=== PATIENT | male | born 1980 | race American Indian/Alaskan Native ===

== ENCOUNTER 2018-02-11 13:41 | Emergency (ER) | payer MEDICARE ==
[2018-02-11] MEDS ORDERED: KEPPRA 1,000 MG/NS 0.75% 100ML 1,000 MG/100 ML BAG IV ONE (14:49)
[2018-02-11] MEDS ORDERED: FIORICET PO ONE (14:57)
--- NOTE | 2018-02-11 15:02 | Emergency Department Report ---
HPI - General Chief Complaint: Seizure Time Seen by Provider: 02/11/18 14:48 - HPI HPI: Room 22 The patient is 37-year-old male presenting with a chief complaint of seizure. The patient reports a seizure today. EMS was called and when the patient was walking down the steps he states he began to feel dizzy and had a syncopal episode. Patient was caught by friends/family before hitting the ground. Patient now complains of feeling fatigue and states his headache and his score of 9/10. The patient states his last seizure before today was yesterday and he has frequent seizures intermittently in spurts. The patient states she has an appointment to see his neurologist 03/07/2018 Location: [See above] Duration: [See above] Quality: Generalized tonic-clonic, headache Severity: 9/10 Modifying factors: [see above] Context: [see above] Mode of transportation: [not driving] ED Past Medical Hx - Past Medical History Previous Medical History?: Yes Hx Diabetes: Yes Hx Seizures: Yes Hx Psychiatric Treatment: Yes (bipolar) Additional medical history: R. eye cataract, L. eye glaucoma, vision impaired - Surgical History Past Surgical History?: No - Family History Family history: no significant - Social History Smoking Status: Never Smoker Substance Use Type: None - Medications Home Medications: Home Medications Medication Instructions Recorded Confirmed Last Taken Type Citalopram [celeXA] 20 mg PO QDAY #30 tablet 03/20/16 05/18/[address] [DepaKOTE DR] 500 mg PO BID #60 tablet 03/20/16 05/18/16 Unknown Rx PHENobarbital 60 mg PO HS #30 tablet 03/20/16 05/18/16 Unknown Rx levETIRAcetam [Keppra TAB] 750 mg PO BID #60 tablet 03/20/16 05/18/16 Unknown Rx ED Review of Systems ROS: Stated complaint: SEIZURES Other details as noted in HPI Constitutional: malaise Neurological: headache, other (seizure, syncope) Physical Exam - Physical Exam Vital Signs: Vital Signs 02/11/18 14:37 Temperature 98.5 F Pulse Rate 61 Respiratory 16 Rate Blood Pressure 101/65 O2 Sat by Pulse 99 Oximetry Physical Exam: GENERAL: The patient is well-developed well-nourished male lying on stretcher not appearing to be in acute distress. [] HEENT: Normocephalic. Atraumatic. Extraocular motions are intact. Patient has moist mucous membranes. NECK: Supple. No meningitic signs are noted. Trachea midline CHEST/LUNGS: Clear to auscultation. There is no respiratory distress noted. HEART/CARDIOVASCULAR: Regular. There is no tachycardia. There is no gallop rub or murmur. ABDOMEN: Abdomen is soft, nontender. Patient has normal bowel sounds. There is no abdominal distention. SKIN: There is no rash. There is no edema. There is no diaphoresis. NEURO: The patient is awake, alert, and oriented. The patient is cooperative. The patient has no focal neurologic deficits. The patient has normal speech. Cranial nerves II through XII grossly intact, no drift MUSCULOSKELETAL: There is no evidence of acute injury. ED Course Vital Signs 02/11/18 14:37 Temperature 98.5 F Pulse Rate 61 Respiratory 16 Rate Blood Pressure 101/65 O2 Sat by Pulse 99 Oximetry ED Medical Decision Making - Lab Data Result diagrams: 02/11/18 14:58 02/11/18 14:58 Laboratory Tests 02/11/18 02/11/18 02/11/18 14:58 14:58 14:58 WBC 4.2 L RBC 4.04 Hgb 12.9 Hct 38.5 MCV 95 H MCH 32 MCHC 33 RDW 14.3 Plt Count 171 Lymph % (Auto) 41.9 H [place] % (Auto) 11.6 H Eos % (Auto) 3.0 Baso % (Auto) 0.7 Lymph # 1.8 [place] # 0.5 Eos # 0.1 Baso # 0.0 Seg Neutrophils % 42.8 Seg Neutrophils # 1.8 Sodium 139 Potassium 3.9 Chloride 104.2 Carbon Dioxide 23 Anion Gap 16 BUN 14 Creatinine 0.5 L Estimated GFR > 60 BUN/Creatinine Ratio 28 Glucose 75 Calcium 8.9 Magnesium 2.20 Total Creatine Kinase CK-MB (CK-2) CK-MB (CK-2) Rel Index Troponin T Valproic Acid Phenobarbital 44.1 H 02/11/18 02/11/18 14:58 15:11 WBC RBC Hgb Hct MCV MCH MCHC RDW Plt Count Lymph % (Auto) [place] % (Auto) Eos % (Auto) Baso % (Auto) Lymph # [place] # Eos # Baso # Seg Neutrophils % Seg Neutrophils # Sodium Potassium Chloride Carbon Dioxide Anion Gap BUN Creatinine Estimated GFR BUN/Creatinine Ratio Glucose Calcium Magnesium Total Creatine Kinase 82 CK-MB (CK-2) 1.0 CK-MB (CK-2) Rel Index Troponin T < 0.010 Valproic Acid 38.5 L Phenobarbital - Radiology Data Radiology results: report reviewed (CT head), image reviewed (CT head) CT head (read by radiologist) sees-nonspecific mild to moderate volume loss in the posterior fossa. No evidence of acute stroke or hemorrhage - Differential Diagnosis seizure, ICH, electrolyte imbalance, ACS Critical care attestation.: If time is entered above; I have spent that time in minutes in the direct care of this critically ill patient, excluding procedure time. ED Disposition Clinical Impression: Seizure, Seizure secondary to subtherapeutic anticonvulsant medication Disposition: DC-01 TO HOME OR SELFCARE Is pt being admited?: No Does the pt Need Aspirin: No Condition: Stable Instructions: Epilepsy (ED) Additional Instructions: Return to the emergency department immediately should you develop worsening symptoms, fever, inability to tolerate food or liquid or any other concerns. Referrals: your, neurologist [Other] - SIMI Time of Disposition: 16:29
[2018-02-11 15:21] LABS: Basophils % (Auto) 0.7 % (0.0-1.8); Eosinophils # (Auto) 0.1 K/mm3 (0.0-0.4); Hematocrit 38.5 % (35.5-45.6); Hemoglobin 12.9 gm/dl (11.8-15.2); Lymphocytes # (Auto) 1.8 K/mm3 (1.2-5.4); Lymphocytes % (Auto) 41.9 % (13.4-35.0); Mean Corpuscular HGB Conc 33 % (32-34); Mean Corpuscular Hemoglobin 32 pg (28-32); Mean Corpuscular Volume 95 fl (84-94); Monocytes # (Auto) 0.5 K/mm3 (0.0-0.8); Monocytes % (Auto) 11.6 % (0.0-7.3); Platelet Count 171 K/mm3 (140-440); Red Blood Count 4.04 M/mm3 (3.65-5.03); Red Cell Distribution Width 14.3 % (13.2-15.2)
[2018-02-11 15:37] LABS: BUN/Creatinine Ratio 28; Blood Urea Nitrogen 14 mg/dL (9-20); Calcium 8.9 mg/dL (8.4-10.2); Hemolysis Index 11
--- NOTE | 2018-02-11 15:58 | Cat Scan Report ---
FINAL REPORT EXAM: CT HEAD/BRAIN WO CON HISTORY: seizure, syncope TECHNIQUE: Routine imaging was obtained of the brain without IV contrast. There are no previous studies available for comparison. FINDINGS: There is no evidence of acute stroke or hemorrhage. There trmd-id-frszyppm volume loss in the posterior fossa which is of uncertain etiology. The ventricular system is appropriate in size. Basal cisterns appear normal. The visualized sinuses are clear. The mastoid air cells are well pneumatized. The calvarium appears intact IMPRESSION: Nonspecific lyrn-gg-lcsgbsta volume loss in the posterior fossa. No evidence of acute stroke or hemorrhage.
[2018-02-11] MEDS ORDERED: DepaCON 500 MG in NACL 0.9% 100 ML IV ONE (16:30)
[2018-02-11] MEDS ORDERED: BENADRYL IM PRN (18:21)
[2018-02-11] MEDS: KEPPRA PO SCH (21:53)
[2018-02-11] MEDS ORDERED: NON-FORMULARY (Levetiracetam [Keppra Tab] 750 MG) PO SCH (22:00)
[2018-02-12] MEDS: celeXA PO SCH (09:49)
[2018-02-12] MEDS: KEPPRA PO SCH ×2 (09:50→22:45)
--- NOTE | 2018-02-12 10:29 | Consultation ---
History of Present Illness - Reason for Consult Consult date: 02/12/18 Reason for consult: Mental Health Evaluation Requesting physician: ABEBE LO - Chief Complaint Chief complaint: "The patient refused to talk" - History of Present Psychiatric Illness 37-year-old male presenting with a chief complaint of seizure. Per the ER note, the patient endorsed SIs' prior to being discharged. Today the patient refused to answer questions during the assessment. He kept his head under the bed sheets the entire time. Medications and Allergies Allergies Allergy/AdvReac Type Severity Reaction Status Date / Time phenytoin sodium Allergy Dizziness Verified 06/28/15 14:00 [From Dilantin] phenytoin sodium extended Allergy Dizziness Verified 06/28/15 14:00 [From Dilantin] Home Medications Medication Instructions Recorded Confirmed Last Taken Type Citalopram [celeXA] 20 mg PO QDAY #30 tablet 03/20/16 05/18/[address] [DepaKOTE DR] 500 mg PO BID #60 tablet 03/20/16 05/18/16 Unknown Rx PHENobarbital 60 mg PO HS #30 tablet 03/20/16 05/18/16 Unknown Rx levETIRAcetam [Keppra TAB] 750 mg PO BID #60 tablet 03/20/16 05/18/16 Unknown Rx Active Meds: Active Medications Citalopram Hydrobromide (Celexa) 20 mg PO QDAY [facility] Last Admin: 02/12/18 09:49 Dose: 20 mg Clonazepam (Klonopin) 0.5 mg PO BID PRN PRN Reason: Anxiety Diphenhydramine HCl (Benadryl) 50 mg IM Q6H PRN PRN Reason: Agitation Divalproex Sodium (Depakote Dr) 500 mg PO BID [facility] Last Admin: 02/12/18 09:49 Dose: 500 mg Levetiracetam (Keppra) 750 mg PO BID [facility] Last Admin: 02/12/18 09:50 Dose: 750 mg Phenobarbital (Phenobarbital) 64.8 mg PO QHS [facility] Last Admin: 02/11/18 21:57 Dose: 64.8 mg Past psychiatric history - Past Medical History Past Medical History: other (Unable to obtain) Past Surgical History: Other (Unabel to obtain) - past Psychiatric treatment and history psychiatric treatment history: Unable to obtain a psy and fam psy hx. - Social History Social history: other (Unable to obtain) Mental Status Exam - Vital signs Last Vital Signs Temp 97.6 F 02/12/18 07:52 Pulse 68 02/12/18 07:52 Resp 18 02/12/18 07:52 BP 99/74 02/12/18 07:52 Pulse Ox 100 02/11/18 20:55 - Exam Narrative exam: Unable to complete the MSE because patient refused to cooperate. Results Result Diagrams: 02/11/18 14:58 02/11/18 14:58 Abnormal lab results 02/11/18 02/11/18 02/11/18 Range/Units 14:58 14:58 14:58 WBC 4.2 L (4.5-11.0) K/mm3 MCV 95 H (84-94) fl Lymph % (Auto) 41.9 H (13.4-35.0) % [place] % (Auto) 11.6 H (0.0-7.3) % Creatinine 0.5 L (0.8-1.5) mg/dL Salicylates (2.8-20.0) mg/dL Acetaminophen (10.0-30.0) ug/mL Valproic Acid (50-100) ug/mL Phenobarbital 44.1 H (15.0-40.0) ug/mL 02/11/18 02/11/18 02/11/18 Range/Units 14:58 14:58 14:58 WBC (4.5-11.0) K/mm3 MCV (84-94) fl Lymph % (Auto) (13.4-35.0) % [place] % (Auto) (0.0-7.3) % Creatinine (0.8-1.5) mg/dL Salicylates < 0.3 L (2.8-20.0) mg/dL Acetaminophen < 5.0 L (10.0-30.0) ug/mL Valproic Acid 38.5 L (50-100) ug/mL Phenobarbital (15.0-40.0) ug/mL All other labs normal. Assessment and Plan Assessment and plan: Impression: Today the patient refused to answer questions during the assessment. Recommendation/Plan: Continue 1013 and attempt to assess the patient in 24 hours.
[2018-02-13 07:39] VITALS: BP 80/50
[2018-02-13] MEDS: celeXA PO SCH (11:45)
[2018-02-13] MEDS: KEPPRA PO SCH (11:45)
--- NOTE | 2018-02-13 12:51 | Progress Note ---
Subjective - Reason for Consult Consult date: 02/13/18 Reason for consult: Psychiatry Follow-up - Chief Complaint Chief complaint: "I was wrong'' 37-year-old male presenting with a chief complaint of seizure. Per the ER note, the patient endorsed SI's prior to being discharged. Today the patient stated that he was upset that his cousin Syd would not pick him up yesterday once discharged. He stated that he felt Syd should have picked him up. The patient apologized for his actions prior to his discharge 2 days ago. Per collateral information from Syd at [phone], he stated that he does not believe the patient would kill himself. He stated that he was busy yesterday. The patient denies SI/HI's and AVH's. He stated that he see Dr Irizarry at [facility] for outpatient psy services for Bipolar DO. He denies any recent manic episodes. He stated having an appt [address] Irizarry. Mental Status Exam - Vital signs Last Vital Signs Temp 97.8 F 02/13/18 07:39 Pulse 74 02/13/18 07:39 Resp 18 02/13/18 07:39 BP 80/50 02/13/18 07:39 Pulse Ox 97 02/13/18 07:39 - Exam Narrative exam: MSE: Appearance: calm, cooperative Behavior: regular eye contact Speech: regular rate and tone Mood: "fine" Affect: congruent to mood Thought Process: linear Thought Content: denies SI/HI's and AVH's Motor Activity: ambulatory Cognition: A/O x 3 Insight: appropriate Judgment: appropriate Assessment and Plan Impression: Hx of Bipolar DO. Today the patient is clam and cooperative during the assessment. Recommendation/Plan: Rescind 1013. The patient can follow-up with Dr Irizarry at [facility] for outpatient psy services.
[2018-02-13] MEDS ORDERED: PHENOBARBITAL 60 MG PO SCH (22:00)
== END 2018-02-13 14:38 | disposition home or self-care (01) ==
LOC: ED 13:41
DX: R56.9 Unspecified convulsions (principal); E11.9 Type 2 diabetes mellitus without complications
CPT/HCPCS: 36415; 70450; 80048; 80164; 80184; 82550; 82553; 83735; 84484; 85025; 93005; 93010; 96365; 96367; 99285; G0480; J1953; 80320

== ENCOUNTER 2018-04-07 14:55 | Emergency (ER) | payer MEDICARE ==
[2018-04-07 15:57] VITALS: BP 98/62
--- NOTE | 2018-04-07 17:47 | Emergency Department Report ---
Chief Complaint: Psych Stated Complaint: MENTAL HEALTH EVALUATION Time Seen by Provider: 04/07/18 17:42 - HPI History of Present Illness: ms. Anna desires assistance for placement. He is not happy with his current place of residence. Denies SI/HI - Exam Vital Signs: Vital Signs 04/07/18 15:47 Temperature 98.6 F Pulse Rate 78 Respiratory 18 Rate Blood Pressure 98/62 O2 Sat by Pulse 100 Oximetry MSE screening note: I have performed a medical screening exam. I have urged Mr. Anna to speak with his personal pillowcase sewer. He does not have any acute medical or psychiatric needs. ED Disposition for MSE Clinical Impression: High risk social situation Disposition: DC-01 TO HOME OR SELFCARE Is pt being admited?: No Does the pt Need Aspirin: No Condition: Stable Additional Instructions: Please talk to your pillowcase sewer for assistance. Time of Disposition: 17:47
== END 2018-04-07 18:36 | disposition home or self-care (01) ==
LOC: ED 14:55
DX: Z60.8 Other problems related to social environment (principal)
CPT/HCPCS: 99283

== ENCOUNTER 2018-06-27 19:42 | Emergency (ER) | payer MEDICAID, MEDICARE ==
[2018-06-27 21:28] LABS: Hematocrit 34.4 % (35.5-45.6); Hemoglobin 11.9 gm/dl (11.8-15.2); Mean Corpuscular HGB Conc 35 % (32-34); Mean Corpuscular Hemoglobin 32 pg (28-32); Mean Corpuscular Volume 94 fl (84-94); Platelet Count 203 K/mm3 (140-440); Red Blood Count 3.67 M/mm3 (3.65-5.03); Red Cell Distribution Width 13.4 % (13.2-15.2)
[2018-06-27 21:48] LABS: BUN/Creatinine Ratio 16; Blood Urea Nitrogen 11 mg/dL (9-20); Calcium 9.4 mg/dL (8.4-10.2); Hemolysis Index 13
[2018-06-27 21:50] LABS: Bacteria,Urine 1+ /HPF (Negative); Bilirubin,Urine NEG (Negative); Blood,Urine NEG (Negative); Color,Urine Yellow (Yellow); Mucus,Urine 3+ /HPF; Urobilinogen,Urine < 2.0 mg/dL (<2.0)
[2018-06-27 21:56] LABS: Amphetamine Screen,Urine PRESUMPTIVE NEGATIVE; Benzodiazepines Screen,Urine PRESUMPTIVE NEGATIVE; Cannabinoid Screen,Urine PRESUMPTIVE NEGATIVE; Cocaine Screen,Urine PRESUMPTIVE NEGATIVE; Methadone Screen,Urine PRESUMPTIVE NEGATIVE; Opiate Screen,Urine PRESUMPTIVE NEGATIVE
[2018-06-27 22:00] LABS: Basophils # (Auto) 0.1 K/mm3 (0.0-0.1); Eosinophils # (Auto) 0.1 K/mm3 (0.0-0.4); Eosinophils % (Auto) 2.1 % (0.0-4.3); Lymphocytes # (Auto) 2.2 K/mm3 (1.2-5.4); Lymphocytes % (Auto) 34.3 % (13.4-35.0); Monocytes # (Auto) 0.5 K/mm3 (0.0-0.8); Monocytes % (Auto) 8.4 % (0.0-7.3)
[2018-06-28] MEDS ORDERED: MACROBID PO ONE (01:49)
--- NOTE | 2018-06-28 06:07 | Emergency Department Report ---
Chief Complaint: Psych Stated Complaint: MH Time Seen by Provider: 06/28/18 00:44 - HPI History of Present Illness: 38-year-old -[place] presents for what appears to be a mental health evaluation. Patient admits to feeling "sad" and depressed. Not very forthcoming with information. There appears to be some type of a issue with his living situation. Denies suicidal or homicidal ideations or any hallucinations to me. - ROS Review of Systems: Denies suicidal or homicidal ideations, hallucinations. - Exam Vital Signs: Vital Signs 06/27/18 06/28/18 06/28/18 21:12 01:33 01:34 Temperature 98.7 F Pulse Rate 100 H 61 Respiratory 18 14 14 Rate Blood Pressure 98/48 Blood Pressure 109/71 [Left] O2 Sat by Pulse 100 100 100 Oximetry Physical Exam: Patient is sleeping, keeping his head within the T-shirt. Heart and lung sounds are normal in auscultation. Patient is not very forthcoming with information or conversive/interactive. MSE screening note: Focused history and physical exam performed. Due to findings the following was ordered: Patient appears to have a mild urinary tract infection. Macrobid has been ordered. The patient will be seen by the morning emergency medicine physician for further evaluation and disposition. ED Medical Decision Making - Lab Data Result diagrams: 06/27/18 21:17 06/27/18 21:17 ED Disposition for MSE Condition: Stable Referrals: PRIMARY CARE, [Primary Care Provider] - 3-5 Days
--- NOTE | 2018-06-28 06:38 | Emergency Department Report ---
ED Psych HPI - General Chief Complaint: Psych Stated Complaint: MH Time Seen by Provider: 06/28/18 00:44 Source: patient Mode of arrival: Ambulatory Limitations: No Limitations - History of Present Illness MD Complaint: suicidal ideation, feels depressed -: Gradual Associated Psychiatric Symptoms: depression History of same: Yes Quality: constant Improves With: none Worsens With: none Context: not taking psychiatric Treatments Prior to Arrival: none If Self Harm: admits thoughts of - Related Data Previous Rx's Medication Instructions Recorded Last Taken Type Citalopram [celeXA] 20 mg PO QDAY #30 tablet 03/20/16 Unknown Rx Divalproex [Bee KANG] 500 mg PO BID #60 tablet 03/20/16 Unknown Rx PHENobarbital 60 mg PO HS #30 tablet 03/20/16 Unknown Rx levETIRAcetam [Keppra TAB] 750 mg PO BID #60 tablet 03/20/16 Unknown Rx Allergies Allergy/AdvReac Type Severity Reaction Status Date / Time phenytoin sodium Allergy Dizziness Verified 06/28/15 14:00 [From Dilantin] phenytoin sodium extended Allergy Dizziness Verified 06/28/15 14:00 [From Dilantin] ED Review of Systems ROS: Stated complaint: MH Other details as noted in HPI Comment: All other systems reviewed and negative Constitutional: denies: chills, fever Eyes: denies: eye pain ENT: denies: ear pain Respiratory: denies: cough, shortness of breath Cardiovascular: denies: chest pain, palpitations Endocrine: no symptoms reported Gastrointestinal: denies: abdominal pain, nausea, vomiting, diarrhea Genitourinary: denies: urgency, dysuria Musculoskeletal: denies: back pain, joint swelling Skin: denies: rash, lesions Neurological: denies: headache, weakness, numbness Psychiatric: denies: anxiety, depression Hematological/Lymphatic: denies: easy bleeding, easy bruising ED Past Medical Hx - Past Medical History Hx Diabetes: (hypoglycemia) Hx Seizures: Yes Hx Psychiatric Treatment: Yes (bipolar) Additional medical history: R. eye cataract, L. eye glaucoma, vision impaired - Social History Smoking Status: Never Smoker Substance Use Type: None - Medications Home Medications: Home Medications Medication Instructions Recorded Confirmed Last Taken Type Citalopram [celeXA] 20 mg PO QDAY #30 tablet 16 05/18/[address] [DepaKOTE DR] 500 mg PO BID #60 tablet 03/20/16 05/18/16 Unknown Rx PHENobarbital 60 mg PO HS #30 tablet 03/20/16 05/18/16 Unknown Rx levETIRAcetam [Keppra TAB] 750 mg PO BID #60 tablet 03/20/16 05/18/16 Unknown Rx ED Physical Exam - General Limitations: No Limitations General appearance: alert, in no apparent distress - Head Head exam: Present: atraumatic, normocephalic, normal inspection - Eye Eye exam: Present: normal appearance, PERRL, EOMI Pupils: Present: normal accommodation - ENT ENT exam: Present: normal exam, normal orophraynx, mucous membranes moist - Neck Neck exam: Present: normal inspection, full ROM. Absent: tenderness - Respiratory Respiratory exam: Present: normal lung sounds bilaterally. Absent: respiratory distress, wheezes, rales, rhonchi, stridor - Cardiovascular Cardiovascular Exam: Present: regular rate, normal rhythm, normal heart sounds - GI/Abdominal GI/Abdominal exam: Present: soft, distended, tenderness, guarding, rebound, normal bowel sounds - Extremities Exam Extremities exam: Present: normal inspection, full ROM, normal capillary refill. Absent: tenderness - Back Exam Back exam: Present: normal inspection, full ROM. Absent: tenderness - Neurological Exam Neurological exam: Present: alert, oriented X3, CN II-XII intact - Psychiatric Psychiatric exam: Present: normal affect, normal mood - Skin Skin exam: Present: warm, dry, intact, normal color. Absent: rash ED Course Vital Signs 06/27/18 06/28/18 06/28/18 21:12 01:33 01:34 Temperature 98.7 F Pulse Rate 100 H 61 Respiratory 18 14 14 Rate Blood Pressure 98/48 Blood Pressure 109/71 [Left] O2 Sat by Pulse 100 100 100 Oximetry 06/28/18 06/28/18 07:30 08:40 Temperature 97.8 F Pulse Rate 77 Respiratory 18 16 Rate Blood Pressure Blood Pressure 97/70 [Left] O2 Sat by Pulse 97 Oximetry - Reevaluation(s) Reevaluation #1: 06/28/18 12:35 Patient is medically cleared for psychiatric evaluation. ED Medical Decision Making - Lab Data Result diagrams: 06/27/18 21:17 06/27/18 21:17 - Medical Decision Making Suicide Ideation. Bipolar Disorder. Critical care attestation.: If time is entered above; I have spent that time in minutes in the direct care of this critically ill patient, excluding procedure time. ED Disposition Clinical Impression: Suicide ideation, Bipolar 1 disorder, depressed Disposition: DC/TX-65 PSY HOSP/PSY UNIT Is pt being admited?: No Does the pt Need Aspirin: No Condition: Stable Referrals: PRIMARY CARE, [Primary Care Provider] - 3-5 Days Time of Disposition: 12:00
[2018-06-28] MEDS ORDERED: KEFLEX PO ONE (07:13)
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
[2018-06-29 08:46] LABS: Alanine Aminotransferase 9 units/L (7-56); Lipase 27 units/L (13-60)
[2018-06-29] MEDS ORDERED: celeXA PO SCH (10:00)
--- NOTE | 2018-06-29 14:33 | Progress Note ---
Subjective - Reason for Consult Consult date: 06/29/18 Reason for consult: Psychiatry Follow-up - Chief Complaint Chief complaint: "I am okay" 38 year old male who presents to the emergency room for a mental health evaluation. This patient is known to me. Today the patient is calm and cooperative during the assessment. The patient stated that he was stressed and didn't have a place to go after finding out his transitional home was "foreclosed." He stated that he was depressed and came to the ER. He stated that he wanted to talk with a "professional." He stated that he never stated being suicidal during triage, so he was surprised that he was placed on a 1013. He stated that he is compliant with his medications and seen at [facility] for outpatient psy services. He denies SI/HI's and AVH's. He denies any side effects of his medications. Mental Status Exam - Vital signs Last Vital Signs Temp 97.8 F 06/28/18 07:30 Pulse 77 06/28/18 07:30 Resp 18 06/28/18 23:30 BP 97/70 06/28/18 07:30 Pulse Ox 99 06/28/18 23:30 - Exam Narrative exam: MSE: Appearance: calm, cooperative Behavior: regular eye contact Speech: regular rate and tone Mood: "okay" Affect: congruent to mood Thought Process: linear Thought Content: denies SI/HI's and AVH's Motor Activity: lying in bed Cognition: A/O x 3 Insight: appropriate Judgment: appropriate Assessment and Plan Impression: Hx Bipolar Disorder. The patient is no threat to self. Recommendation/Plan: Rescind 1013. Continue Depakote 500mg PO BID for mood and Celexa 20 mg PO QAM for depression/anxiety. Discussed suicidality/medication induced mamadou with patient reference Celexa. The patient can follow up with [facility] for outpatient psy services.
--- NOTE | 2018-06-29 16:01 | Emergency Department Report ---
HPI - General Chief Complaint: Psych Time Seen by Provider: 06/28/18 00:44 - HPI HPI: Patient was seen today by the psychiatric nurse practitioner Mr Gunner Casey who recommended discharge him home because patient is no longer suicidal. I re- examined the patient and he confirmed that he is no longer suicidal. Based on the recommendation of the psychiatric team, I'll go ahead and discharge patient to follow up in the psychiatric facility he has been referred to. Patient said he has all his medications at home and he does not need any refills. ED Past Medical Hx - Past Medical History Hx Diabetes: (hypoglycemia) Hx Seizures: Yes Hx Psychiatric Treatment: Yes (bipolar) Additional medical history: R. eye cataract, L. eye glaucoma, vision impaired - Social History Smoking Status: Never Smoker Substance Use Type: None - Medications Home Medications: Home Medications Medication Instructions Recorded Confirmed Last Taken Type Citalopram [celeXA] 20 mg PO QDAY #30 tablet 03/20/16 05/18/[address] [DepaKOTE DR] 500 mg PO BID #60 tablet 03/20/16 05/18/16 Unknown Rx PHENobarbital 60 mg PO HS #30 tablet 03/20/16 05/18/16 Unknown Rx levETIRAcetam [Keppra TAB] 750 mg PO BID #60 tablet 03/20/16 05/18/16 Unknown Rx ED Review of Systems ROS: Stated complaint: MH Other details as noted in HPI Constitutional: denies: chills, fever Eyes: denies: eye pain ENT: denies: ear pain Respiratory: denies: cough, shortness of breath Cardiovascular: denies: chest pain, palpitations Endocrine: no symptoms reported Gastrointestinal: denies: abdominal pain, nausea, vomiting, diarrhea Genitourinary: denies: urgency, dysuria Musculoskeletal: denies: back pain, joint swelling Skin: denies: rash, lesions Neurological: denies: headache, weakness, numbness Psychiatric: denies: anxiety, depression Hematological/Lymphatic: denies: easy bleeding, easy bruising Physical Exam - Physical Exam Vital Signs: Vital Signs 06/27/18 06/28/18 06/28/18 21:12 01:33 01:34 Temperature 98.7 F Pulse Rate 100 H 61 Respiratory 18 14 14 Rate Blood Pressure 98/48 Blood Pressure 109/71 [Left] O2 Sat by Pulse 100 100 100 Oximetry 06/28/18 06/28/18 06/28/18 07:30 08:40 23:30 Temperature 97.8 F Pulse Rate 77 Respiratory 18 16 18 Rate Blood Pressure Blood Pressure 97/70 [Left] O2 Sat by Pulse 97 99 Oximetry ED Course Vital Signs 06/27/18 06/28/18 06/28/18 21:12 01:33 01:34 Temperature 98.7 F Pulse Rate 100 H 61 Respiratory 18 14 14 Rate Blood Pressure 98/48 Blood Pressure 109/71 [Left] O2 Sat by Pulse 100 100 100 Oximetry 06/28/18 06/28/18 06/28/18 07:30 08:40 23:30 Temperature 97.8 F Pulse Rate 77 Respiratory 18 16 18 Rate Blood Pressure Blood Pressure 97/70 [Left] O2 Sat by Pulse 97 99 Oximetry ED Medical Decision Making - Lab Data Result diagrams: 06/27/18 21:17 06/27/18 21:17 Critical care attestation.: If time is entered above; I have spent that time in minutes in the direct care of this critically ill patient, excluding procedure time. ED Disposition Clinical Impression: Suicide ideation, Bipolar 1 disorder, depressed Disposition: DC-01 TO HOME OR SELFCARE Is pt being admited?: No Does the pt Need Aspirin: No Condition: Stable Instructions: Depression (ED), Epilepsy (ED) Additional Instructions: Please follow up with the psychiatric facility your effective. Also follow up with her primary doctor and a neurologist. Return to the emergency room for any suicidal or homicidal ideation or for any other medical concerns. Referrals: PRIMARY CARE, [Primary Care Provider] - 3-5 Days Time of Disposition: 16:14
[2018-06-29 16:04] VITALS: BP 101/70
== END 2018-06-29 17:15 | disposition home or self-care (01) ==
LOC: EEVIPCON 19:42 → ED 19:42
DX: F31.9 Bipolar disorder, unspecified (principal); E16.2 Hypoglycemia, unspecified; F39 Unspecified mood [affective] disorder; Z88.8 Allergy status to other drugs, medicaments and biological substances; Z79.899 Other long term (current) drug therapy
CPT/HCPCS: 36415; 80048; 80164; 80307; 81001; 82150; 83690; 84075; 84450; 84460; 85025; 87086; 99284; G0480; 80320

== ENCOUNTER 2019-12-05 18:03 | Emergency (ER) | payer MEDICAID ==
[2019-12-05 18:25] VITALS: BP 125/85
--- NOTE | 2019-12-05 18:54 | Emergency Department Report ---
ED General Adult HPI - General Chief complaint: Psych Stated complaint: DEPRESSION/ANXIETY Time Seen by Provider: 12/05/19 18:36 Source: patient, EMS Mode of arrival: Ambulatory Limitations: Other - History of Present Illness Initial comments: Patient is a 39-year-old F [place] male who is presenting with anxiety. Patient states that people are badgering him in his neighborhood and he feels depressed and anxious. Patient states earlier today he did feel some heart racing which is resolved at this time. Patient denies shortness of breath tingling the hands or face chest pain nausea vomiting at this time. Patient does have a history of bipolar depression anxiety. Patient states he does take medications - Related Data Previous Rx's Medication Instructions Recorded Last Taken Type Citalopram [celeXA] 20 mg PO QDAY #30 tablet 03/20/[address] [Bee KANG] 500 mg PO BID #60 tablet 03/20/16 Unknown Rx PHENobarbitaL [PHENobarbital] 60 mg PO HS #30 tablet 03/20/16 Unknown Rx levETIRAcetam [Keppra TAB] 750 mg PO BID #60 tablet 03/20/16 Unknown Rx Allergies Allergy/AdvReac Type Severity Reaction Status Date / Time phenytoin sodium Allergy Dizziness Verified 12/05/19 18:11 [From Dilantin] phenytoin sodium extended Allergy Dizziness Verified 12/05/19 18:11 [From Dilantin] ED Review of Systems ROS: Stated complaint: DEPRESSION/ANXIETY Other details as noted in HPI Comment: All other systems reviewed and negative ED Past Medical Hx - Past Medical History Hx Diabetes: (hypoglycemia) Hx Seizures: Yes Hx Psychiatric Treatment: Yes (bipolar DEPRESSION ANXIETY) Additional medical history: R. eye cataract, L. eye glaucoma, vision impaired ANGER MANAGEMENT - Social History Smoking Status: Never Smoker Substance Use Type: None - Medications Home Medications: Home Medications Medication Instructions Recorded Confirmed Last Taken Type Citalopram [celeXA] 20 mg PO QDAY #30 tablet 03/20/16 05/18/[address] [Bee KANG] 500 mg PO BID #60 tablet 03/20/16 05/18/16 Unknown Rx PHENobarbitaL [PHENobarbital] 60 mg PO HS #30 tablet 03/20/16 05/18/16 Unknown Rx levETIRAcetam [Keppra TAB] 750 mg PO BID #60 tablet 03/20/16 05/18/16 Unknown Rx ED Physical Exam - General Limitations: Other General appearance: alert, in no apparent distress - Head Head exam: Present: atraumatic, normocephalic - Eye Eye exam: Present: normal appearance - ENT ENT exam: Present: mucous membranes moist - Neck Neck exam: Present: normal inspection - Respiratory Respiratory exam: Present: normal lung sounds bilaterally. Absent: respiratory distress, wheezes, rales, rhonchi - Cardiovascular Cardiovascular Exam: Present: regular rate, normal rhythm. Absent: systolic murmur, diastolic murmur, rubs, gallop - GI/Abdominal GI/Abdominal exam: Present: soft, normal bowel sounds - Rectal Rectal exam: Present: deferred - Extremities Exam Extremities exam: Present: normal inspection - Back Exam Back exam: Present: normal inspection - Neurological Exam Neurological exam: Present: alert, oriented X3 - Psychiatric Psychiatric exam: Present: normal affect, normal mood - Skin Skin exam: Present: warm, dry, intact, normal color. Absent: rash ED Course Vital Signs 12/05/19 18:24 Temperature 97.9 F Pulse Rate 69 Respiratory 20 Rate Blood Pressure 125/85 [Left] O2 Sat by Pulse 100 Oximetry ED Medical Decision Making - Medical Decision Making Patient is calm and cooperative asymptomatic at this time. Patient has been given resources for outpatient mental health facilities. Patient when asked why he did not go to [facility] states he is been there to so many times they will not see him anymore. Patient given information to [facility], [facility], [place] [facility], [facility]. Patient also is having concerns about his living situation he was given a list of transitional alf providers. Patient is not having emergent condition at this time and is been ruled out to follow-up with [facility] as mentioned above. Critical care attestation.: If time is entered above; I have spent that time in minutes in the direct care of this critically ill patient, excluding procedure time. ED Disposition Clinical Impression: Anxiety Disposition: Z-07 MED SCREENING EXAM-LEFT Is pt being admited?: No Does the pt Need Aspirin: No Condition: Stable Additional Instructions: See outpatient resources for mental health evaluation as well as transitional alf information Time of Disposition: 18:54
== END 2019-12-05 19:00 | disposition left against medical advice (07) ==
LOC: ED 18:03
DX: F41.9 Anxiety disorder, unspecified (principal); F31.9 Bipolar disorder, unspecified; Z79.899 Other long term (current) drug therapy; Z86.69 Personal history of other diseases of the nervous system and sense organs; Z88.8 Allergy status to other drugs, medicaments and biological substances
CPT/HCPCS: 99282

== ENCOUNTER 2022-06-16 18:15 | Emergency (ER) | payer MEDICAID ==
[2022-06-17] MEDS ORDERED: levETIRAcetam 1000 MG/NS 0.75% 1,000 MG/100 ML BAG IV ONE (00:25)
[2022-06-17] MEDS ORDERED: SODIUM CHLORIDE 0.9% 1000 ML 1,000 ML IV ONE (00:25)
--- NOTE | 2022-06-17 01:07 | Emergency Department Report ---
ED Seizure HPI - General Chief Complaint: Seizure Stated Complaint: POSS SEIZURE Time Seen by Provider: 06/17/22 00:23 Source: patient, EMS Mode of arrival: Stretcher Limitations: Other - History of Present Illness Initial Comments: 42-year-old male legally blind with a history of seizure who presents with an episode of seizure that occurred around 5 PM yesterday. Patient reports normal state of health before this happened. No fever or chills reported. No other modifying or associated factors reported. MD Complaint: seizure - Related Data Previous Rx's Medication Instructions Recorded Last Taken Type Citalopram [celeXA] 20 mg PO QDAY #30 tablet 03/20/[address] [MaikaKOTE ] 500 mg PO BID #60 tablet 03/20/16 Unknown Rx PHENobarbitaL [PHENobarbital] 60 mg PO HS #30 tablet 03/20/16 Unknown Rx levETIRAcetam [Keppra TAB] 750 mg PO BID #60 tablet 03/20/16 Unknown Rx Allergies Allergy/AdvReac Type Severity Reaction Status Date / Time phenytoin sodium Allergy Dizziness Verified 06/16/22 18:46 [From Dilantin] phenytoin sodium extended Allergy Dizziness Verified 06/16/22 18:46 [From Dilantin] ED Review of Systems ROS: Stated complaint: POSS SEIZURE Other details as noted in HPI Comment: All other systems reviewed and negative Neurological: other (Seizure) ED Past Medical Hx - Past Medical History Hx Diabetes: (hypoglycemia) Hx Seizures: Yes Hx Psychiatric Treatment: Yes (bipolar DEPRESSION ANXIETY) Additional medical history: R. eye cataract, L. eye glaucoma, vision impaired ANGER MANAGEMENT - Social History Smoking Status: Never Smoker Substance Use Type: None - Medications Home Medications: Home Medications Medication Instructions Recorded Confirmed Last Taken Type Citalopram [celeXA] 20 mg PO QDAY #30 tablet 03/20/16 05/18/[address] [Bee KANG] 500 mg PO BID #60 tablet 03/20/16 05/18/16 Unknown Rx PHENobarbitaL [PHENobarbital] 60 mg PO HS #30 tablet 03/20/16 05/18/16 Unknown Rx levETIRAcetam [Keppra TAB] 750 mg PO BID #60 tablet 03/20/16 05/18/16 Unknown Rx ED Physical Exam - General Limitations: Other General appearance: alert, in no apparent distress - Head Head exam: Present: normal inspection - ENT ENT exam: Present: normal exam, normal orophraynx, mucous membranes dry - Neck Neck exam: Present: normal inspection, full ROM. Absent: tenderness - Respiratory Respiratory exam: Present: normal lung sounds bilaterally. Absent: respiratory distress, accessory muscle use - Cardiovascular Cardiovascular Exam: Present: regular rate, normal rhythm, normal heart sounds - GI/Abdominal GI/Abdominal exam: Present: soft, normal bowel sounds. Absent: distended, tenderness - Extremities Exam Extremities exam: Present: normal inspection, normal capillary refill. Absent: full ROM, tenderness, pedal edema - Back Exam Back exam: Absent: tenderness - Neurological Exam Neurological exam: Present: alert, oriented X3 - Psychiatric Psychiatric exam: Present: normal affect, normal mood - Skin Skin exam: Present: warm, normal color ED Course Vital Signs 06/16/22 18:44 Temperature 98.3 F Pulse Rate 95 H Respiratory 18 Rate Blood Pressure 133/91 [Left] O2 Sat by Pulse 98 Oximetry ED Medical Decision Making - Lab Data Result diagrams: 06/17/22 00:45 06/17/22 00:45 - Medical Decision Making Here with possible seizure -- but considering this patients age other differential such as stroke, myocardial infarction, hepatic encephalopathy, systemic infection with sepsis cannot be ruled out. In order to rule out those above we will go ahead and order CBC, CMP, urinalysis, for any infectious process or electrolyte abnormality and thyroid panel for any hypo or hyper thyroidism. In the meantime we will go ahead and give immediate Keppra 1 g IV piggyback x1. Patient noted with unremarkable work-up labs including chemistry and hematology--patient reassured with close follow-up with his primary doctor. Critical care attestation.: If time is entered above; I have spent that time in minutes in the direct care of this critically ill patient, excluding procedure time. ED Disposition Clinical Impression: Seizure Disposition: 01 HOME / SELF CARE / HOMELESS Is pt being admited?: No Does the pt Need Aspirin: No Condition: Stable Instructions: Seizure, Adult, [id number] Additional Instructions: Increase your daily fluid to help your hydration Please continue all the medication that you are taking for your seizure as prescribed by your primary doctor/neurology Maintain adequate rest Call or return to emergency room if your symptoms worsen Call and schedule follow-up with your primary doctor in the next 3 to 5 days for progress Referrals: PRIMARY CARE, [Primary Care Provider] - 3-5 Days Time of Disposition: 04:19
[2022-06-17 01:15] LABS: Basophils # (Auto) 0.1 K/mm3 (0.0-0.1); Eosinophils # (Auto) 0.4 K/mm3 (0.0-0.4); Eosinophils % (Auto) 4.3 % (0.0-4.3); Hematocrit 37.6 % (35.5-45.6); Hemoglobin 12.4 gm/dl (11.8-15.2); Lymphocytes # (Auto) 2.3 K/mm3 (1.2-5.4); Lymphocytes % (Auto) 26.6 % (13.4-35.0); Mean Corpuscular HGB Conc 33 % (32-34); Mean Corpuscular Volume 92 fl (84-94); Monocytes # (Auto) 1.2 K/mm3 (0.0-0.8); Monocytes % (Auto) 13.4 % (0.0-7.3); Platelet Count 209 K/mm3 (140-440); Red Blood Count 4.09 M/mm3 (3.65-5.03); Red Cell Distribution Width 13.9 % (13.2-15.2)
[2022-06-17 01:33] LABS: Alanine Aminotransferase 26 units/L (7-56); Albumin 4.6 g/dL (3.9-5); Blood Urea Nitrogen 11 mg/dL (9-20); Calcium 9.6 mg/dL (8.4-10.2); Hemolysis Index 11
[2022-06-17 01:35] LABS: BUN/Creatinine Ratio 18
[2022-06-17] MEDS ORDERED: levETIRAcetam 500 MG TAB PO ONE (01:35)
[2022-06-17 08:50] VITALS: BP 128/80
== END 2022-06-17 08:50 | disposition home or self-care (01) ==
LOC: ED 18:15
DX: R56.9 Unspecified convulsions (principal); F31.9 Bipolar disorder, unspecified; F41.9 Anxiety disorder, unspecified; Z88.8 Allergy status to other drugs, medicaments and biological substances
CPT/HCPCS: 36415; 80053; 80177; 85025; 99283; J7030; J1953

== ENCOUNTER 2022-07-04 18:25 | Emergency (ER) | payer MEDICAID ==
[2022-07-04] MEDS ORDERED: levETIRAcetam 500 MG TAB PO ONE (20:52)
--- NOTE | 2022-07-04 20:57 | Emergency Department Report ---
ED General Adult HPI - General Chief complaint: Seizure Stated complaint: SEIZURES Time Seen by Provider: 07/04/22 20:46 Source: patient, EMS ( EMS documentation not available at time of chart dictation ), RN notes reviewed, old records reviewed Mode of arrival: Stretcher Limitations: No Limitations - History of Present Illness Initial comments: The patient was evaluated in the emergency department for symptoms described in the history of present illness. He/she was evaluated in the context of the global COVID-19 pandemic, which necessitated consideration that the patient might be at risk for infection with the virus that causes COVID-19. Instit utional protocols and algorithms that pertain to the evaluation of patients at risk for COVID-19 are in a state of rapid change based on information released by regulatory bodies including the CDC and federal and state organizations. These policies and algorithms were followed during the patient's care in the emergency department. Please note that these policies, procedures and recommendations changed on a rapid basis. This is a pleasant and cooperative 42-year-old gentleman with a history of bipolar and seizure disorder. The patient is maintained on Keppra, 1500 mg twice daily, and Depakote, 250 mg twice daily. He typically follows at [facility] for his continuity of care. He is compliant with his medications. He reportedly had a seizure today after watching a football game. He reports that he is in his usual state of health prior to the seizure. His last convulsive event was a few weeks ago. The patient currently denies headache, neck pain, chest pain, abdominal pain, shortness of breath and urinary symptoms. No acute psychiatric symptoms. No drug use. Patient recently had laboratory studies at this facility, which were essentially unremarkable. Patient is visually impaired, and ambulates with a walking stick. Patient able to manipulate his cellular phone -: Sudden Severity scale (0 -10): 0 Consistency: now resolved Improves with: none Worsens with: none Associated Symptoms: denies other symptoms - Related Data Previous Rx's Medication Instructions Recorded Last Taken Type Citalopram [celeXA] 20 mg PO QDAY #30 tablet 03/20/16 Unknown Rx PHENobarbitaL [PHENobarbital] 60 mg PO HS #30 tablet 03/20/16 Unknown Rx levETIRAcetam [Keppra TAB] 750 mg PO BID #60 tablet 03/20/[address] [Depakote Dr] 500 mg PO BID #60 tablet 07/04/22 Unknown Rx levETIRAcetam [Keppra TAB] 1,500 mg PO BID #180 tablet 07/04/22 Unknown Rx Allergies Allergy/AdvReac Type Severity Reaction Status Date / Time phenytoin sodium Allergy Dizziness Verified 06/16/22 18:46 [From Dilantin] phenytoin sodium extended Allergy Dizziness Verified 06/16/22 18:46 [From Dilantin] ED Review of Systems ROS: Stated complaint: SEIZURES Other details as noted in HPI Comment: All other systems reviewed and negative ED Past Medical Hx - Past Medical History Hx Diabetes: (hypoglycemia) Hx Seizures: Yes Hx Psychiatric Treatment: Yes (bipolar DEPRESSION ANXIETY) Additional medical history: R. eye cataract, L. eye glaucoma, vision impaired ANGER MANAGEMENT - Social History Smoking Status: Never Smoker Substance Use Type: None - Medications Home Medications: Home Medications Medication Instructions Recorded Confirmed Last Taken Type Citalopram [celeXA] 20 mg PO QDAY #30 tablet 03/20/16 05/18/16 Unknown Rx PHENobarbitaL [PHENobarbital] 60 mg PO HS #30 tablet 03/20/16 05/18/16 Unknown Rx levETIRAcetam [Keppra TAB] 750 mg PO BID #60 tablet 03/20/16 05/18/[address] [Depakote Dr] 500 mg PO BID #60 tablet 07/04/22 Unknown Rx levETIRAcetam [Keppra TAB] 1,500 mg PO BID #180 tablet 07/04/22 Unknown Rx ED Physical Exam - General Limitations: No Limitations General appearance: alert, in no apparent distress - Head Head exam: Present: atraumatic, normocephalic - Eye Eye exam: Present: normal appearance, EOMI. Absent: nystagmus - ENT ENT exam: Present: normal exam, normal orophraynx, mucous membranes moist, normal external ear exam - Neck Neck exam: Present: normal inspection, full ROM. Absent: tenderness, meningismus - Respiratory Respiratory exam: Present: normal lung sounds bilaterally. Absent: respiratory distress, wheezes, rales, rhonchi, stridor, decreased breath sounds - Cardiovascular Cardiovascular Exam: Present: regular rate, normal rhythm, normal heart sounds. Absent: bradycardia, tachycardia, irregular rhythm, systolic murmur, diastolic murmur, rubs, gallop - GI/Abdominal GI/Abdominal exam: Present: soft. Absent: distended, tenderness, guarding, rebound, rigid, pulsatile mass - Rectal Rectal exam: Present: deferred - Extremities Exam Extremities exam: Present: normal inspection, full ROM, other (2+ pulses noted in the bilateral upper and lower extremities. There is no palpable cord. negative Homans sign. Muscular compartments are soft. The pelvis is stable.). Absent: pedal edema, calf tenderness - Back Exam Back exam: Present: normal inspection, full ROM. Absent: tenderness, CVA tenderness (R), CVA tenderness (L), paraspinal tenderness, vertebral tenderness - Neurological Exam Neurological exam: Present: alert (Sensation is intact to light touch in 4 extremities), oriented X3, normal gait, other (There is no facial droop. The tongue is midline. EOMI. 5 out of 5 strength in 4 extremities.). Absent: motor sensory deficit - Psychiatric Psychiatric exam: Present: flat affect. Absent: homicidal ideation, suicidal ideation - Skin Skin exam: Present: warm, dry, intact, normal color. Absent: rash ED Course Vital Signs 07/04/22 07/04/22 18:58 22:52 Temperature 98.8 F Pulse Rate 89 Respiratory 18 Rate Blood Pressure 121/88 [Left] O2 Sat by Pulse 98 Oximetry O2 Sat by Pulse 99 Oximetry [ Digit-Finger] - Reevaluation(s) Reevaluation #1: 07/04/22 22:47 Differential diagnosis, including but not limited to: Breakthrough seizure, seizure, pseudoseizure Assessment and plan: 42-year-old gentleman, who is clinically sober, with a GCS of 15, nonfocal neurologic and motor examination, known history of visual impairment, presenting with a history of breakthrough seizure. Laboratory studies are nonactionable. Appreciates that potassium not resulted today. Patient has normal renal function, and recently had an unremarkable potassium level. Patient given Keppra and Depakote here in the department. He has not had any seizure in the many hours that he has been here. He is advised to not operate motor vehicles or drive for the next 6 months. He should follow-up closely with his outpatient neurologist for medication adjustment, but will increase Depakote to 500 mg twice daily in the interim. Close outpatient follow-up with outpatient neurology. Return precautions are reviewed. All questions answered 07/04/22 22:50 07/04/22 22:53 - Pulse Oximetry Interpretation Digit-Finger Initial Pulse Oximetry Readin O2 Sat by Pulse Oximetry: 99 Actions Taken: none ED Medical Decision Making - Lab Data Result diagrams: 07/04/22 21:45 Vital Signs 07/04/22 18:58 Temperature 98.8 F Pulse Rate 89 Respiratory 18 Rate Blood Pressure 121/88 [Left] O2 Sat by Pulse 98 Oximetry Lab Results 07/04/22 07/04/22 07/04/22 Range/Units 21:20 21:20 21:20 Sodium (137-145) mmol/L Potassium Chloride (98-107) mmol/L Carbon Dioxide (22-30) mmol/L Anion Gap mmol/L BUN (9-20) mg/dL Creatinine (0.8-1.3) mg/dL Estimated GFR ml/min BUN/Creatinine Ratio % Glucose (75-100) mg/dL Calcium (8.4-10.2) mg/dL Total Bilirubin (0.1-1.2) mg/dL AST (5-40) units/L ALT (7-56) units/L Alkaline Phosphatase (35-129) units/L Total Protein (6.3-8.2) g/dL Albumin (3.9-5) g/dL Albumin/Globulin Ratio % Salicylates < 0.3 L (2.8-20.0) mg/dL Acetaminophen 5.0 L (10.0-30.0) ug/mL Valproic Acid 85.2 (50-100) ug/mL Plasma/Serum Alcohol < 0.01 (0-0.07) % 07/04/22 Range/Units 21:45 Sodium 136 L (137-145) mmol/L Potassium TNR Chloride 99.8 (98-107) mmol/L Carbon Dioxide 24 (22-30) mmol/L Anion Gap 19 mmol/L BUN 12 (9-20) mg/dL Creatinine 0.7 L (0.8-1.3) mg/dL Estimated GFR > 60 ml/min BUN/Creatinine Ratio 17 % Glucose 78 (75-100) mg/dL Calcium 9.6 (8.4-10.2) mg/dL Total Bilirubin 0.30 (0.1-1.2) mg/dL AST 74 H (5-40) units/L ALT 30 (7-56) units/L Alkaline Phosphatase 98 (35-129) units/L Total Protein 8.7 H (6.3-8.2) g/dL Albumin 4.5 (3.9-5) g/dL Albumin/Globulin Ratio 1.1 % Salicylates (2.8-20.0) mg/dL Acetaminophen (10.0-30.0) ug/mL Valproic Acid (50-100) ug/mL Plasma/Serum Alcohol (0-0.07) % - EKG Data -: EKG Interpreted by Me EKG shows normal: sinus rhythm Rate: normal - EKG Data When compared to previous EKG there are: previous EKG unavailable 07/04/22 22:47 The EKG is interpreted at 22: 06 This is a sinus rhythm, with a ventricular rate of 73 bpm. There is a normal axis, normal P wave axis, QTC is 4 7 5 ms, nonspecific T wave abnormalities V2 and V3. This is an abnormal EKG. This is not a STEMI. Critical care attestation.: If time is entered above; I have spent that time in minutes in the direct care of this critically ill patient, excluding procedure time. ED Disposition Clinical Impression: Seizure Disposition: HOME / SELF CARE / HOMELESS Is pt being admited?: No Does the pt Need Aspirin: No Condition: Good Instructions: Seizure, Adult, [id number] Additional Instructions: Do not drive or operate motor vehicles for the next 6 months. Follow-up with a primary care doctor or neurologist within the next week. Continue Keppra at 1500 mg twice daily. Continue Depakote but increase to 500 mg twice daily Please return to the emergency room right away with new pain, worsened pain, migration of pain, projectile vomiting, change in mental status, confusion, inability tolerate liquid feeds, new, worsened or different symptoms not present on the initial emergency room evaluation Prescriptions: Divalproex Dr [Depakote Dr] 500 mg PO BID #60 tablet levETIRAcetam [Keppra TAB] 1,500 mg PO BID #180 tablet Referrals: FARIDA MILLS MD [Primary Care Provider] - 3-5 Days MEGAN GARZA MD [Staff Physician] - 3-5 Days [facility] [Provider Group] - 3-5 Days Forms: Work/School Release Form(ED)
[2022-07-04] MEDS ORDERED: VALPROIC ACID 250 MG CAP PO ONE (22:04)
[2022-07-04 22:11] LABS: Alanine Aminotransferase 30 units/L (7-56); Albumin 4.5 g/dL (3.9-5); Blood Urea Nitrogen 12 mg/dL (9-20); Calcium 9.6 mg/dL (8.4-10.2); Hemolysis Index 809
[2022-07-04 22:13] LABS: BUN/Creatinine Ratio 17
[2022-07-04 23:47] VITALS: BP 118/78
--- NOTE | 2022-07-06 09:56 | Electrocardiograph Report ---
[facility] Test Date: 2022-07-04 Test Time: 21:06:15 Pat Name: MARICHUY WATTS Department: Room: Gender: M Contract Administrator: LURDES : 1980 Requested By: FELI JACQUES Order Number: [id number] Reading MD: Luís Nichols Measurements Intervals [place] Rate: 73 P: 61 [place]: 183 QRS: 33 QRSD: 90 T: -2 QT: 432 QTc: 475 Interpretive Statements Sinus rhythm Nonspecific T abnormalities, anterior leads No previous ECG available for comparison Electronically Signed On 07-06-2022 9:56:05 EDT by Luís Nichols
== END 2022-07-04 23:40 | disposition home or self-care (01) ==
LOC: ED 18:25
DX: R56.9 Unspecified convulsions (principal); E11.649 Type 2 diabetes mellitus with hypoglycemia without coma
CPT/HCPCS: 36415; 80053; 80164; 80320; 93005; 99284; G0480